=== PATIENT | male | born 2000 | race Caucasian/White ===

== ENCOUNTER → 2023-12-09 | Emergency (ER) | payer OTHER ==
[~2023-12-09] MED LIST: KETOROLAC 30 MG/ML INJ ONE; NA CHLORIDE 0.9% 1,000 ML ONE; ONDANSETRON 4 MG/2 ML VIAL ONE
[2023-12-09 11:18] LABS: Absolute Lymphocytes (CBC) 0.3 K/uL (0.7-4.9); Hematocrit 45.2 % (39.6-49.0); Lymphocytes % 3.3 % (15.3-44.8); MCV 88.1 fL (80-100); MPV 7.5 fL (7.6-11.3); Platelets 194 thou/uL (152-406); RBC Red Blood Cell Count 5.13 M/uL (4.33-5.43)
[2023-12-09 11:38] LABS: Albumin 4.3 g/dL (3.4-5.0); Bilirubin Total 0.8 mg/dL (0.2-1.0); Potassium 3.7 mEq/L (3.5-5.1); Protein, Total 7.7 g/dL (6.4-8.2)
--- NOTE | 2023-12-09 11:55 | RAD REPORT ---
EXAM DESCRIPTION: CTAbdomen Pelvis W Contrast - 12/09/2023 11:47 am CLINICAL HISTORY: upper abd pain, vomiting COMPARISON: No comparisons TECHNIQUE: CT of the abdomen and pelvis was performed with IV contrast. All CT scans are performed using dose optimization technique as appropriate and may include automated exposure control or mA/KV adjustment according to patient size. FINDINGS: Lower chest: No acute abnormality. Liver: No acute abnormality or suspicious lesions. Biliary: No biliary ductal dilatation. Stomach: No significant focal abnormality. Duodenum: No significant focal abnormality. Pancreas: No significant abnormality. Spleen: No significant abnormality. Adrenal: No suspicious lesions. Kidney/ureter: No hydronephrosis. No renal calculi. Retroperitoneum: No retroperitoneal adenopathy. Vascular: No aneurysm. Bowel: No significant focal abnormality. Normal appendix Peritoneum: No ascites or free air. Tiny fat containing umbilical hernia. Bladder: Grossly unremarkable. Reproductive: No adnexal masses. Bones: No acute fracture. Other: n/a IMPRESSION: No acute intra-abdominal or pelvic finding. Normal appendix.
[2023-12-09 12:05] LABS: SARS-CoV-2 Antigen Rapid Res Negative (Negative)
[2023-12-09 12:22] LABS: Blood Morphology Comment NOT SEEN (NOT SEEN); Platelet Estimate ADEQ; White Blood Cell Scan OK (OK)
[2023-12-09 12:26] LABS: Urine Bacteria None Seen /HPF (<20); Urine Bilirubin NEGATIVE (Negative); Urine Blood Negative (Negative); Urine Clarity Clear (Clear); Urine Color Light-Yellow (Yellow); Urine Glucose NEGATIVE (Negative); Urine Mucus 3+ /HPF (None Seen); Urine Protein TRACE (Negative); Urine RBC <5 /HPF (None Seen); Urine Urobilinogen Normal (Normal)
[2023-12-09 12:34] LABS: Specific Gravity > 1.030 (1.005-1.030)
--- NOTE | 2023-12-09 12:34 | EDPHYS ---
Physician Documentation [facility] Name: Gopi Card Age: 23 yrs Sex: Male : 2000 Arrival Date: 12/09/2023 Time: 10:45 Bed 18 Private MD: ED Physician Burak Lowe HPI: 12/09 11:14 This 23 yrs old Male presents to ER via Ambulatory with complaints of muscle aches, rn Dizziness. 11:15 Patient reports woke up with bilateral back pain, muscle aches and myalgias. Feels rn generalized weakness, myalgias, nausea, vomiting. Patient reports subjective fever. Reports chronic back pain so was unsure if was related. No abdominal pain. No diarrhea. No blood in stool.. Onset: The symptoms/episode began/occurred this morning. Severity of symptoms: At their worst the symptoms were moderate in the emergency department the symptoms have improved. The patient has not experienced similar symptoms in the past. Historical: - Allergies: 10:53 No Known Allergies; bp - Home Meds: 10:53 None [Active]; bp - PMHx: 10:53 Anxiety; depressive disorder; bp - Immunization history:: Adult Immunizations up to date. - Social history:: Smoking status: Patient denies any tobacco usage or history of. - Family history:: not pertinent. - Hospitalizations: : No recent hospitalization is reported. ROS: 11:15 Constitutional: Positive for subjective fever and chills Eyes: Negative for injury, rn pain, redness, and discharge, Cardiovascular: Negative for chest pain, palpitations, and edema, Respiratory: Negative for shortness of breath, cough, wheezing, and pleuritic chest pain, Abdomen/GI: Positive for nausea and vomiting Back: Positive for back pain MS/Extremity: Negative for injury and deformity, Skin: Negative for injury, rash, and discoloration, Neuro: Positive for generalized weakness and malaise Exam: 11:15 Constitutional: This is a well developed, well nourished patient who is awake, alert, rn and in no acute distress. Ambulatory to room without difficulty or assistance Head/Face: Normocephalic, atraumatic. ENT: Dry mucous membranes, no oral swelling or lesions Neck: Trachea midline, no masses palpated, and no cervical lymphadenopathy. Supple, full range of motion without nuchal rigidity, or vertebral point tenderness. No Meningismus. Cardiovascular: Tachycardic, regular. No pulse deficits. Respiratory: No increased work of breathing, no retractions or nasal flaring. Abdomen/GI: Soft, non-tender MS/ Extremity: Pulses equal, no cyanosis. Neuro: Awake and alert, GCS 15, oriented to person, place, time, and situation. Cranial nerves II-XII grossly intact. Motor strength 5/5 in all extremities. Sensory grossly intact. Cerebellar exam normal. Normal gait. Vital Signs: 10:48 BP 145 / 83; Pulse 110; Resp 20; Temp 97.6; Pulse Ox 100% ; Weight 95.25 kg; Height 6 bp ft. 3 in. ; 12:28 BP 131 / 83; Pulse 93; Resp 18; Pulse Ox 100% on R/A; mb9 10:48 Body Mass Index 26.25 (95.25 kg, 190.5 cm) bp MDM: 10:47 Patient medically screened. rn 12:32 Differential Diagnosis Flu, COVID, viral syndrome. Back pain. Dehydration.. Data rn reviewed: vital signs, nurses notes, lab test result(s), radiologic studies, CT scan, and as a result, I will discharge patient. Counseling: I had a detailed discussion with the patient and/or guardian regarding the historical points, exam findings, and any diagnostic results supporting the discharge/admit diagnosis, lab results, radiology results, the need for outpatient follow up, to return to the emergency department if symptoms worsen or persist or if there are any questions or concerns that arise at home. Response to treatment: the patient's symptoms have markedly improved after treatment, and as a result, I will discharge patient. Special discussion: I discussed with the patient/guardian in detail that at this point there is no indication for admission to the hospital. It is understood, however, that if the symptoms persist or worsen the patient needs to return immediately for re-evaluation. ED course: Most likely early viral syndrome. Heart rate improved with fluids, feels much better, myalgias improved. Will DC home with as needed Zofran and return precautions.. 12/09 10:53 Order name: CBC with Diff; Complete Time: 12:26 rn 12/09 10:53 Order name: CMP; Complete Time: 11:55 rn 12/09 10:53 Order name: Lipase; Complete Time: 11:55 rn 12/09 10:53 Order name: Urinalysis w/ reflexes; Complete Time: 12:35 rn 12/09 10:53 Order name: Flu; Complete Time: 12:26 rn 12/09 10:53 Order name: SARS RAPID; Complete Time: 12:19 rn 12/09 11:38 Order name: CBC Smear Scan; Complete Time: 12:26 EDMS 12/09 10:53 Order name: CT Abd/Pelvis - IV Contrast Only; Complete Time: 11:55 rn 12/09 10:53 Order name: IV Saline Lock; Complete Time: 11:39 rn 12/09 10:53 Order name: Labs collected and sent; Complete Time: 11:39 rn Administered Medications: 11:15 Drug: NS 0.9% IV 1000 ml IV at 1 bolus Per protocol; 1000 mL bolus Route: IV; Rate: 1 mb9 bolus; Site: right antecubital; 12:29 Follow up: Response: No adverse reaction; IV Status: Completed infusion mb9 11:15 Drug: Ondansetron IVP 4 mg IVP once; over 2 minutes Route: IVP; Site: right antecubital;mb9 12:22 Follow up: Response: No adverse reaction mb9 12:21 Drug: Ketorolac IVP 30 mg IVP once Route: IVP; Site: right antecubital; mb9 12:29 Follow up: Response: No adverse reaction mb9 Disposition Summary: 12/09/23 12:33 Discharge Ordered Notes: Location: Home rn Problem: new rn Symptoms: have improved rn Condition: Stable rn Diagnosis - Nausea with vomiting, unspecified rn - Myalgia rn Followup: rn - With: Private Physician - When: As needed - Reason: Recheck today's complaints, Re-evaluation by your physician Discharge Instructions: - Discharge Summary Sheet rn - Nausea and Vomiting, Adult rn Forms: - Medication Reconciliation Form rn - Thank You Letter rn - Antibiotic modern languages professor - Prescription Opioid Use rn - Patient Portal Instructions rn - Leadership Thank You Letter rn - Work release form mb9 Prescriptions: - ondansetron 4 mg Oral Tablet,disintegrating - take 1 tablet ORAL route every 8 hours As needed; 12 tablet; Refills: 0, rn Product Selection Permitted Signatures: Dispatcher [employer] EDMS Lowe, Burak, MD MD rn Prince, Aung, RN RN bp Breneman, Taya, RN RN mb9
--- NOTE | 2023-12-09 12:34 | ER ---
Nurse's Notes [facility] Name: Gopi Card Age: 23 yrs Sex: Male : 2000 Arrival Date: 12/09/2023 Time: 10:45 Bed 18 Private MD: Diagnosis: Nausea with vomiting, unspecified;Myalgia Presentation: 12/09 10:48 Chief complaint: Patient states: BACK PAIN, SUBJECTIVE FEVER, N/V SINCE AM. Coronavirus bp screen: chills, fever. Ebola Screen: No symptoms or risks identified at this time. Initial Sepsis Screen: Does the patient meet any 2 criteria? HR > 90 bpm. No. Patient's initial sepsis screen is negative. Does the patient have a suspected source of infection? No. Patient's initial sepsis screen is negative. Risk Assessment: Do you want to hurt yourself or someone else? Patient reports no desire to harm self or others. Onset of symptoms was December 09, 2023 at 07:00. 10:48 Method Of Arrival: Ambulatory bp 10:48 Acuity: BOYD 3 bp Triage Assessment: 10:53 General: Appears uncomfortable, ill, Behavior is calm, cooperative, appropriate for bp age. Pain: Complains of pain in back. Musculoskeletal: Circulation, motion, and sensation intact. Range of motion: intact in all extremities. Historical: - Allergies: 10:53 No Known Allergies; bp - Home Meds: 10:53 None [Active]; bp - PMHx: 10:53 Anxiety; depressive disorder; bp - Immunization history:: Adult Immunizations up to date. - Social history:: Smoking status: Patient denies any tobacco usage or history of. - Family history:: not pertinent. - Hospitalizations: : No recent hospitalization is reported. Screenin:41 [facility] ED Fall Risk Assessment (Adult) History of falling in the last 3 months, mb9 including since admission No falls in past 3 months (0 pts) Confusion or Disorientation No (0 pts) Intoxicated or Sedated No (0 pts) Impaired Gait No (0 pts) Mobility Assist Device Used No (0 pt) Altered Elimination No (0 pt) Score/Fall Risk Level 0 - 2 = Low Risk Oriented to surroundings, Maintained a safe environment, Educated pt \T\ family on fall prevention, incl call for assistance when getting out of bed. Abuse screen: Denies threats or abuse. Nutritional screening: No deficits noted. Tuberculosis screening: No symptoms or risk factors identified. Assessment: 11:40 Reassessment:. General: Appears in no apparent distress. Behavior is calm, cooperative. mb9 Pain: Complains of pain in back. Neuro: Taylor Agitation-Sedation Scale (RASS): 0 - Alert and Calm Level of Consciousness is awake, alert, obeys commands, Oriented to person, place, time, situation, Appropriate for age. Cardiovascular: Patient's skin is warm and dry. Respiratory: Airway is patent Respiratory effort is even, unlabored, Respiratory pattern is regular, symmetrical. GI: Abdomen is flat, non-distended, Bowel sounds present X 4 quads. Abd is soft and non tender X 4 quads. Reports nausea. : No signs and/or symptoms were reported regarding the genitourinary system. EENT: No signs and/or symptoms were reported regarding the EENT system. Derm: Skin is pink, warm \T\ dry. Musculoskeletal: Range of motion: intact in all extremities. Vital Signs: 10:48 BP 145 / 83; Pulse 110; Resp 20; Temp 97.6; Pulse Ox 100% ; Weight 95.25 kg; Height 6 bp ft. 3 in. ; 12:28 BP 131 / 83; Pulse 93; Resp 18; Pulse Ox 100% on R/A; mb9 10:48 Body Mass Index 26.25 (95.25 kg, 190.5 cm) bp ED Course: 10:46 Patient arrived in ED. ra3 10:47 Burak Lowe MD is Attending Physician. rn 10:53 Triage completed. bp 10:53 Arm band placed on. bp 10:55 Nory Mcbride, RN is Primary Nurse. mb9 11:39 SARS RAPID Sent. mb9 11:39 Flu Sent. mb9 11:41 Placed in gown. Bed in low position. Call light in reach. Side rails up X 1. Client mb9 placed on continuous cardiac and pulse oximetry monitoring. NIBP monitoring applied. 11:41 No provider procedures requiring assistance completed. mb9 11:49 CT Abd/Pelvis - IV Contrast Only In Process Unspecified. EDMS 12:39 IV discontinued, intact, bleeding controlled, No redness/swelling at site. Pressure mb9 dressing applied. Administered Medications: 11:15 Drug: NS 0.9% IV 1000 ml IV at 1 bolus Per protocol; 1000 mL bolus Route: IV; Rate: 1 mb9 bolus; Site: right antecubital; 12:29 Follow up: Response: No adverse reaction; IV Status: Completed infusion mb9 11:15 Drug: Ondansetron IVP 4 mg IVP once; over 2 minutes Route: IVP; Site: right antecubital;mb9 12:22 Follow up: Response: No adverse reaction mb9 12:21 Drug: Ketorolac IVP 30 mg IVP once Route: IVP; Site: right antecubital; mb9 12:29 Follow up: Response: No adverse reaction mb9 Medication: 11:41 VIS not applicable for this client. mb9 Outcome: 12:33 Discharge ordered by . rn 12:39 Discharged to home ambulatory, mb9 12:39 Condition: stable 12:39 Discharge instructions given to patient, family, Instructed on discharge instructions, follow up and referral plans. Demonstrated understanding of instructions, follow-up care, medications, Prescriptions given X 1, 12:39 Patient left the ED. mb9 Signatures: Dispatcher [employer] EDBurak Lombardi MD MD rn Peltier, Brian RN RN Nory Perkins RN RN mb9 Monica Pearce ra3
[2023-12-09 15:41] VITALS: BP 131/83; TEMP 97.6; O2SAT 100
== END ==
LOC: ER 10:45
DX: R11.2 Nausea with vomiting, unspecified (principal); M79.10 Myalgia, unspecified site; M54.9 Dorsalgia, unspecified
CPT/HCPCS: 36415; 74177; 80053; 81001; 83690; 85025; 87804; 87811; J2405; J7030; Q9967